=== PATIENT | female | born 1985 | race Caucasian/White ===

== ENCOUNTER 2019-02-05 05:35 | Inpatient (IN) ==
--- NOTE | 2019-01-27 08:26 | PAT Medication Instructions ---
Medication Instructions Date of Service January 27, 2019 Home Medications PNV cmb#95-ferrous fumarate-FA [] 1 tab PO QAM acetaminophen [Tylenol Extra Strength] 500 mg PO Q6H NEEDED DO NOT take the morning of surgery PNV cmb#95-ferrous fumarate-FA [] 1 tab PO QAM Take morning of surgery With a small sip of water, OTHERWISE NOTHING TO EAT OR DRINK AFTER MIDNIGHT: acetaminophen [Tylenol Extra Strength] 500 mg PO Q6H NEEDED (if needed; stop 4 hours before surgery) Take evening before surgery acetaminophen [Tylenol Extra Strength] 500 mg PO Q6H NEEDED (if needed) Other Notes If you have any questions please call us at [phone] or [phone] or [phone] or [phone]
--- NOTE | 2019-01-27 08:37 | Anesthesiology Consultation ---
Date of Service January 27, 2019 Assessment & Plan (1) Encounter for pre-operative examination: - No previous anesthesia records Chart Review Chart Review: Acceptable Risk for Surgery and Patient seen in Pre Admission Testing Consults Requested none Teaching & Discussion Pre-Anesthesia Teaching/Discussion Notes: Instructed NPO after midnight before surgery, except medications with 15 cc of water. Medication instructions provided according to the PAT guidelines. History Surgery Operation Date: 02/05/19 07:30 Proposed Procedures p Section in LD - Jose Luis Meek MD Height/Weight Height: 5 ft 6 in Weight: 107.7 kg Allergies Allergy/AdvReac Type Severity Reaction Status Date / Time No Known Allergies Allergy Verified 01/23/19 08:04 Medications Home Medications Medication Instructions Recorded Confirmed Last Taken PNV cmb#95-ferrous fumarate-FA 1 tab PO QAM 01/23/19 01/23/19 Unknown [] acetaminophen [Tylenol Extra 500 mg PO Q6H PRN 01/23/19 01/23/19 Unknown Strength] Past Medical History Medical History Bronchitis X 2 DURING THIS -LAST TIME 2 MONTHS AGO PER PT-NO INHALERS Epilepsy Follows with [facility]. No longer on medication. Grand Mal seizures. Last one was 3-4 years ago. Began in 7th grade. Exercise / Class Metabolic Activity II 4-5 Yardwork/Stairs/Walk up hill (Walking daily and chasing after her toddler. Able to climb stairs. Denies CP with activity and normally no SOB with activity, but slight ALMARAZ as end of approaches. ) Past Family History Family History Grandmother (Maternal) Family history of diabetes mellitus Mother Family history of diabetes mellitus Past Surgical History Surgical History History of section 2017 History of tooth extraction WISDOM TEETH Past Anesthesia History No Hx of Anesthesia Complications and No Family Hx of Anesthesia Complications History of PONV No Hx of PONV and Hx of Motion Sickness (If riding in the back seat) Social History Smoking Status: Former smoker Do You Dip or Chew Tobacco: No Smoking End Date: QUIT 3 YRS AGO Hx Alcohol Use: Yes Alcohol type: wine Alcohol Intake Frequency Comment: SELDOM WHEN NOT Hx Substance Use: No substance use type: does not use Review of Systems Patient denies chest pain, shortness of breath, joint pain, cough, wheezing, palpitations. +ALMARAZ (Slight with end of ) +Acid Reflux (During only - takes TUMS) Physical Exam Vital Signs BP: 106/72 P: 91 R: 16 T: 98.1 SPO2: 97% on RA ENMT Thyromental Distance: > or= 3.5 Finger Breadths (4) Mallampati Class: II Neck normal visual inspection and trachea midline; neck extension not limited Respiratory normal respiratory effort Auscultation: lungs clear to auscultation bilaterally Cardiovascular Rate/Rhythm: regular rate and regular rhythm Heart Sounds: no murmur Vessels: no carotid bruit Neurologic moves all extremities Psychiatric Orientation: alert and oriented x 3 Testing Laboratory Results 01/27/19 08:50 01/27/19 08:50 PT 9.8 Seconds (9.0-12.0) 01/27/19 08:50 INR 1.0 (0.9-1.1) 01/27/19 08:50 APTT 26.4 Seconds (21.0-31.0) 01/27/19 08:50 Blood Type O Positive 01/27/19 08:50 Antibody Screen NEGATIVE 01/27/19 08:50
[2019-01-27 11:18] LABS: Basophils # (auto) 0.03 K/uL (0-0.2); Basophils % (auto) 0.2 %; Eosinophils % (auto) 0.6 %; Hematocrit (blood only) 32.3 % (37-47); Hemoglobin 10.7 g/dL (12.0-16.0); Immature Granulocytes # (auto) 0.65 K/uL (0.00-0.02); Lymphocytes # (auto) 2.56 K/uL (1.2-3.4); Lymphocytes % (auto) 15.9 %; Mean Corpuscular Hgb Conc 33.1 g/dL (32-36); Mean Corpuscular Volume 81.4 fL (80-100); Mean Platelet Volume 8.9 fL (7.4-10.4); Monocytes # (auto) 1.03 K/uL (0.11-0.59); Monocytes % (auto) 6.4 %; Neutrophils # (auto) 11.75 K/uL (1.4-6.5); Neutrophils % (auto) 72.9 %; Platelet Count 273 K/uL (130-400); RDW Coefficient of Variation 14.7 % (11.5-14.5); RDW Standard Deviation 43.3 fL (36.4-46.3); Red Blood Count 3.97 M/uL (4.2-5.4); White Blood Count 16.12 K/uL (4.8-10.8)
[2019-01-27 11:28] LABS: Partial Thromboplastin Time 26.4 Seconds (21.0-31.0); Prothrombin Time 9.8 Seconds (9.0-12.0)
[2019-01-27 12:36] LABS: BUN Creatinine Ratio 23.5 (10-20); Calcium 8.9 mg/dl (8.5-10.1); Creatinine Clr Calc Pharmacy 156.7 ml/min; Est GFR (African American) 136.8; Est GFR (Non-African American) 118.1; Potassium 4.3 mmol/L (3.5-5.1)
--- NOTE | 2019-02-03 11:10 | History and Physical Report ---
DATE OF ADMISSION: 02/05/2019 CHIEF COMPLAINT: Previous section, intrauterine , 39 weeks gestation, macrosomia. HISTORY OF PRESENT ILLNESS: The patient is a 33-year-old 2, para 1, general health is good, well dated with a first trimester ultrasound, due date 02/12/2019. She has had no problems. Her obstetrical history is as follows: In 2017, she had a boy, 9 pounds 10 ounces, at 40 weeks and 2 days, spontaneous labor, went to full dilatation, pushed for an hour and a half, could not bring the head down, was diagnosed with cephalopelvic disproportion, underwent a primary section. This has been uneventful. Estimated weight is 9+ pounds. The patient has elected for repeat section. PAST MEDICAL HISTORY: She has a boy in good health. ALLERGIES: No known drug allergies. PAST SURGICAL HISTORY: She has had a previous , had wisdom teeth removed. MEDICAL HISTORY: She has a history of a seizure disorder. She has not been on medications for 6 years and her last seizure was 4 years ago. SOCIAL HISTORY: No smoking, no alcohol intake. She works for [employer] in [place]. FAMILY HISTORY: Mom 56, has diabetes. Father is 56 in good health. Father has a history of seizure disorder. One brother has a history of seizure disorders. REVIEW OF SYSTEMS: She does have a history of migraines, history of a seizure disorder which is in her father and her brother and has not been on medications for 6 years. The seizures have been getting more infrequent. PHYSICAL EXAMINATION: GENERAL: Well-developed, well-nourished 33-year-old white female, alert, oriented x3 and cooperative, in no acute distress, appeared her stated age. EYES: Conjunctivae are pink. Sclerae white, no evidence of jaundice. EARS: Had normal light reflex bilaterally. NOSE: Had normal mucosa. Septum is midline. There were no polyps. THROAT: No erythema or evidence of infection. Teeth are in good state of repair. HEAD: Normocephalic, normal distribution of hair. NECK: Supple. Trachea midline. Thyroid is not enlarged. There is no adenopathy appreciated. Both carotids are of good intensity. CHEST: Clear to auscultation and percussion. No wheezes, rales or rhonchi appreciated. HEART: Had regular rhythm. S1, S2 are normal. BREASTS: Normal. ABDOMEN: Revealed a term size abdomen, well-healed Pfannenstiel scar. Estimated weight over 9 pounds, vertex presentation. MUSCULOSKELETAL: Revealed no calf tenderness. PELVIC: Revealed cervix to be posterior, 90% effaced, 2 cm dilated. IMPRESSIONS OF THIS CASE: Macrosomia, previous section, history of seizure disorder.
[2019-02-05] MEDS ORDERED: LACTATED RINGER'S 1,000 ML IV SCH ×3 (06:00→09:00)
[2019-02-05] MEDS ORDERED: cefOXitin 2,000 MG in DEXTROSE 5% 50 ML IV SCH (06:00)
[2019-02-05] MEDS ORDERED: CITRIC ACID/SODIUM CITRATE 15 ML UDC PO SCH (06:00)
[2019-02-05 06:26] LABS: Basophils # (auto) 0.04 K/uL (0-0.2); Basophils % (auto) 0.2 %; Eosinophils # (auto) 0.15 K/uL (0-0.5); Eosinophils % (auto) 0.9 %; Hematocrit (blood only) 32.9 % (37-47); Immature Granulocytes # (auto) 0.52 K/uL (0.00-0.02); Immature Granulocytes % (auto) 3.2 %; Lymphocytes # (auto) 3.44 K/uL (1.2-3.4); Lymphocytes % (auto) 21.1 %; Mean Corpuscular Volume 80.2 fL (80-100); Mean Platelet Volume 8.8 fL (7.4-10.4); Monocytes # (auto) 0.93 K/uL (0.11-0.59); Monocytes % (auto) 5.7 %; Neutrophils # (auto) 11.25 K/uL (1.4-6.5); Neutrophils % (auto) 68.9 %; Platelet Count 260 K/uL (130-400); RDW Coefficient of Variation 14.7 % (11.5-14.5); RDW Standard Deviation 43.1 fL (36.4-46.3); White Blood Count 16.33 K/uL (4.8-10.8)
[2019-02-05 06:34] LABS: Mean Corpuscular Hgb Conc 33.4 g/dL (32-36)
[2019-02-05 06:41] LABS: Partial Thromboplastin Time 25.8 Seconds (21.0-31.0); Prothrombin Time 9.9 Seconds (9.0-12.0)
[2019-02-05 07:06] LABS: BUN Creatinine Ratio 21.5 (10-20); Calcium 8.8 mg/dl (8.5-10.1); Creatinine Clr Calc Pharmacy 145.5 ml/min; Est GFR (African American) 133.5; Est GFR (Non-African American) 115.2; Potassium 3.9 mmol/L (3.5-5.1)
--- NOTE | 2019-02-05 07:17 | History & Physical Bridge Note ---
Date of Service February 05, 2019 History & Physical Bridge Note I have examined the patient, reviewed the History & Physical and in the interval since the performance of the History & Physical I have noted the following changes of clinical significance: no changes noted
[2019-02-05] MEDS ORDERED: MoRPHine SULFATE PF 1 MG/ML 10 ML AMP/VIAL ONE (07:39)
[2019-02-05] MEDS ORDERED: fentaNYL citrate 100 MCG/2 ML VIAL ONE (07:40)
[2019-02-05] MEDS ORDERED: OXYTOCIN 10 UNITS/ML VIAL ONE ×3 (07:53→08:13)
[2019-02-05] MEDS ORDERED: PHENYLEPHRINE 100MCG/ML 5ML SYR ONE (07:53)
[2019-02-05] MEDS ORDERED: NALOXONE HCL 0.08 MG in SYRINGE 1.8 ML IV PRN (07:59)
[2019-02-05] MEDS ORDERED: MoRPHine SULFATE PF 1 MG/ML 10 ML AMP/VIAL INT SPINAL ONE (07:59)
[2019-02-05] MEDS ORDERED: NALOXONE HCL 1 MG in SODIUM CHLORIDE 0.9% 1000ML 1,000 ML IV PRN (07:59)
[2019-02-05] MEDS ORDERED: DiphenhydrAMINE HCL 50 MG/ML VIAL IV PRN ×2 (07:59→08:51)
[2019-02-05] MEDS ORDERED: ONDANSETRON INJ 2 MG/ML 2 ML VIAL IV PRN ×2 (07:59→08:51)
[2019-02-05] MEDS ORDERED: HYDROmorphone INJ 0.5 MG/0.5 ML SYR IV PRN (07:59)
[2019-02-05] MEDS ORDERED: ePHEDrine sulfate 50 MG/ML AMP IV PRN (07:59)
[2019-02-05] MEDS ORDERED: NALOXONE HCL 0.4 MG/1 ML VIAL/CARP IV PRN (07:59)
[2019-02-05] MEDS ORDERED: NALBUPHINE HCL INJ 10 MG/ML AMP IV PRN (07:59)
[2019-02-05] MEDS ORDERED: LACTATED RINGER'S 500 ML IV PRN (07:59)
[2019-02-05] MEDS ORDERED: SODIUM CHLORIDE 0.9% 1000ML 1,000 ML IV SCH (08:00)
[2019-02-05] MEDS ORDERED: DC INTRASPINAL MORPHINE SCH (08:00)
[2019-02-05] MEDS ORDERED: NO NARCOTICS OR SEDATIVES SCH (08:00)
[2019-02-05] MEDS ORDERED: ONDANSETRON INJ 2 MG/ML 2 ML VIAL ONE (08:10)
[2019-02-05] MEDS ORDERED: OXYTOCIN 10 UNITS/ML VIAL IM ONE (08:26)
[2019-02-05] MEDS ORDERED: SENNA 8.6 MG TAB PO PRN (08:51)
[2019-02-05] MEDS ORDERED: HYDROCORTISONE ACETATE 25 MG SUPP PR PRN (08:51)
[2019-02-05] MEDS ORDERED: MAGNESIUM HYDROXIDE SUSP 30 ML UDC PO PRN (08:51)
[2019-02-05] MEDS ORDERED: SUPERCREAM 0.870% 15 GM JAR EXT PRN (08:51)
[2019-02-05] MEDS ORDERED: BENZOCAINE 20% AER SPR 82.5 GM CAN EXT PRN (08:51)
[2019-02-05] MEDS ORDERED: PROMETHAZINE HCL 25 MG in SODIUM CHLORIDE 0.9% 50 ML IV PRN (08:51)
[2019-02-05] MEDS ORDERED: DIPHTHERIA/TETANUS/PERTUSSIS 0.5 ML SYR/VIAL IM ONE (08:51)
--- NOTE | 2019-02-05 08:51 | Post Operative Brief Note ---
Immediate Post Op Note v1 Date of Surgery February 05, 2019 Pre & Post Diagnosis Operation Date: 02/05/19 07:30 Pre-Op Diagnosis: Term , Previous Section Post-Op Diagnosis: Term , Previous Section Low Transverse Section; Delivery of Live Male Child Procedure Operation Date: 02/05/19 07:30 Actual Procedures p Section in LD - Jose Luis Meek MD Surgeon Jose Luis Meek MD Manager Privacy Dr Pratt Estimated Blood Loss 500 Findings Consistent with Post-Op Diagnosis Fluids 1300 ml Specimens placenta Drains Salazar Catheter (salazar inserted after spinal with return of clear yellow urine) Anesthesia Type MAC Spinal Regional Complications none Disposition Accompanied Patient To Recovery: No Disposition: Recovery Room
--- NOTE | 2019-02-05 09:37 | Anesthesiology Progress Note ---
Date of Service February 05, 2019 Anesthesia Post Procedure Vital Signs Vital Signs: Temp Pulse Resp BP Pulse Ox 02/05/19 09:36 79 117/59 L 02/05/19 09:35 82 97 02/05/19 09:30 84 97 02/05/19 09:26 78 116/69 02/05/19 09:25 83 96 02/05/19 09:20 80 97 02/05/19 09:19 75 92 02/05/19 09:18 85 132/71 02/05/19 09:15 80 94 02/05/19 09:10 78 96 02/05/19 09:07 86 94 02/05/19 09:06 127/64 02/05/19 09:05 78 97 02/05/19 09:00 92 H 97 02/05/19 08:56 84 92 02/05/19 08:55 83 125/57 L 95 02/05/19 07:34 87 98 02/05/19 07:29 82 98 02/05/19 06:58 36.7 C 83 16 136/93 02/05/19 06:02 116/60 02/05/19 05:49 36.3 C L 91 H 16 141/63 H Transfer of Care Handoff Completed per policy Notes Mental Status: alert / awake / arousable Patient Amnestic to Procedure: Yes Nausea / Vomiting: adequately controlled Pain: adequately controlled Airway Patency, RR, SpO2: stable & adequate BP & HR: stable & adequate Hydration State: stable & adequate Neuraxial Anesthesia: was administered and sensory block is resolving Anesthetic Complications: no major complications apparent and Pt Satisfied with anesthetic care
--- NOTE | 2019-02-05 10:09 | Operative Report ---
DATE OF OPERATION: 02/05/2019 PROCEDURE: Repeat low segment section. INDICATIONS FOR SURGERY: Previous section for macrosomia. PREOPERATIVE DIAGNOSES: Suspected macrosomia, intrauterine , 39 weeks gestation. POSTOPERATIVE DIAGNOSIS: Delivered live male infant, 9 pounds 2 ounces. SURGEON: Roxie Meek MD. OUTSIDE SALES: Blayne Pratt MD ESTIMATED BLOOD LOSS: 500 mL. ANESTHESIA: Spinal. OPERATIVE FINDINGS AND PROCEDURE: The patient was brought to the OR table, correctly identified by armband and conversation. Spinal anesthesia was administered. Burton catheter was inserted aseptically in the bladder, connected to gravity drainage. Compression stockings were applied. The patient was positioned on the OR table. Lower abdomen was painted with an alcohol-based sterilizing solution, waited 3 minutes for the solution to dry, then draped in usual sterile fashion. Once the anesthesia was tested and found to be adequate, a Pfannenstiel incision was made through a previous scar. Incision was carried down to the anterior fascia by sharp dissection. Hemostasis was secured by electrocauterization. Fascia was incised transversely, from underlying muscle by blunt and sharp dissection. Recti muscles were in the midline exposing the peritoneum which was carefully raised and entered. The lower uterine segment was exposed with a bladder retractor. An incision was made above the vesicouterine fold. Bladder was undermined bluntly and pushed out of the operative field. Lower uterine segment was scored with a knife, then entered with the scissors. At this time, clear amniotic fluid was seen. A vectis retractor was applied to the 's head, then with fundal pressure, 's head was delivered, then the body was delivered. Cord was clamped and cut. The infant was attended to by the time study technologist, Dr. Cartagena who was scrubbed and present at the time of the delivery. Following this, collected some cord blood. Placenta was removed manually. Uterus, tubes, and ovaries were brought out through the incision. Uterine cavity was wiped clean with a clean sponge. The edges of the myometrial defect were grasped with ring forceps. The myometrial layer was approximated with continuous interlocking suture of heavy chromic. Then, the fascial layer was approximated over this with a continuous suture of heavy duty Vicryl and one [id number] suture was used to complete the hemostatic process. Peritoneal edges were restored with a 3-0 chromic and this restored the integrity of the vesicouterine fold. Tubes and ovaries were inspected and found to be normal. The pelvis was cleansed of all blood clots and debris. Uterus, tubes, and ovaries were reinserted into the abdominal cavity. Careful anatomical approximation of the anterior abdominal wall was performed. Peritoneum was closed with a mattress suture of chromic catgut. Recti muscles were approximated with interrupted wheqzj-[id number]-cbcju suture of chromic catgut. The fascia was closed with continuous interlocking suture of Vicryl on each side, tied in the midline. SubQ was approximated with a running plain. The skin edges were approximated with staple clips. I attest to the content of the Intraoperative Record and any orders documented therein. Any exception s are noted below.
[2019-02-05] MEDS ORDERED: OXYTOCIN 30 UNITS in LACTATED RINGER'S 1,000 ML IV SCH (11:15)
[2019-02-05] MEDS: KETOROLAC 30 MG/ML VIAL IV PRN ×3 (11:16→23:13)
[2019-02-05] MEDS: SIMETHICONE 80 MG CHEW PO SCH ×3 (15:55→20:00)
[2019-02-05] MEDS: DOCUSATE SODIUM 100 MG CAP PO SCH (20:00)
[2019-02-06] MEDS ORDERED: ZOLPIDEM TARTRATE 5 MG TAB PO PRN (02:00)
[2019-02-06] MEDS ORDERED: KETOROLAC 30 MG/ML VIAL IV PRN (02:00)
[2019-02-06] MEDS ORDERED: MEPERIDINE HCL 50 MG/ML CARP IV PRN (02:00)
[2019-02-06] MEDS: OXYCODONE/ACETAMINOPHEN 5mg/325mg TAB PO PRN ×5 (04:54→20:58)
[2019-02-06 06:39] LABS: Basophils # (auto) 0.04 K/uL (0-0.2); Basophils % (auto) 0.2 %; Eosinophils # (auto) 0.12 K/uL (0-0.5); Eosinophils % (auto) 0.7 %; Hematocrit (blood only) 28.9 % (37-47); Hemoglobin 9.5 g/dL (12.0-16.0); Immature Granulocytes # (auto) 0.24 K/uL (0.00-0.02); Immature Granulocytes % (auto) 1.5 %; Lymphocytes # (auto) 1.89 K/uL (1.2-3.4); Lymphocytes % (auto) 11.8 %; Mean Corpuscular Hgb Conc 32.9 g/dL (32-36); Mean Corpuscular Volume 81.4 fL (80-100); Mean Platelet Volume 8.7 fL (7.4-10.4); Monocytes # (auto) 1.09 K/uL (0.11-0.59); Monocytes % (auto) 6.8 %; Neutrophils # (auto) 12.68 K/uL (1.4-6.5); Platelet Count 211 K/uL (130-400); RDW Coefficient of Variation 14.9 % (11.5-14.5); RDW Standard Deviation 43.9 fL (36.4-46.3); Red Blood Count 3.55 M/uL (4.2-5.4); White Blood Count 16.06 K/uL (4.8-10.8)
[2019-02-06] MEDS: SIMETHICONE 80 MG CHEW PO SCH ×4 (07:25→20:33)
[2019-02-06] MEDS: DOCUSATE SODIUM 100 MG CAP PO SCH ×2 (07:25→20:33)
[2019-02-06] MEDS: FERROUS SULFATE 325 MG TAB PO SCH (07:25)
[2019-02-06] MEDS: PRENATAL VITAMIN 1 TAB PO SCH (07:25)
[2019-02-06] MEDS: IBUPROFEN 600 MG TAB PO PRN ×4 (09:06→20:59)
--- NOTE | 2019-02-06 12:21 | Obstetrical Progress Note ---
Date of Service February 06, 2019 Physical Exam Physical Exam: abdomen soft and non tender incision is clean and dry passing flatus vaginal bleeding scant to moderate hgb 9.5 no calf tenderness ambulating well Results & Data Vital Signs (Past 12 Hours) Vital Signs Temp Pulse Resp BP Pulse Ox 02/06/19 07:35 36.8 C 93 H 16 117/77 96 02/06/19 05:05 36.7 C 98 H 16 102/67 97 02/06/19 01:41 16 97 02/06/19 00:30 17 99
[2019-02-06] MEDS ORDERED: BISACODYL 5 MG TABEC PO SCH (20:00)
[2019-02-07] MEDS: OXYCODONE/ACETAMINOPHEN 5mg/325mg TAB PO PRN ×4 (02:22→15:24)
[2019-02-07] MEDS: IBUPROFEN 600 MG TAB PO PRN ×4 (02:22→15:23)
[2019-02-07 06:49] LABS: Hemoglobin 9.4 g/dL (12.0-16.0)
[2019-02-07] MEDS: DOCUSATE SODIUM 100 MG CAP PO SCH (07:41)
[2019-02-07] MEDS: FERROUS SULFATE 325 MG TAB PO SCH (07:41)
[2019-02-07] MEDS: PRENATAL VITAMIN 1 TAB PO SCH (07:41)
[2019-02-07] MEDS: SIMETHICONE 80 MG CHEW PO SCH (07:42)
--- NOTE | 2019-02-07 08:24 | Anesthesiology Progress Note ---
Date of Service February 07, 2019 Anesthesia Post Procedure Vital Signs Vital Signs: Temp Pulse Resp BP Pulse Ox 02/06/19 22:40 36.6 C 88 16 115/82 97 02/06/19 19:25 36.4 C L 86 16 108/70 96 02/06/19 16:10 36.6 C 90 18 104/66 97 Pain Intensity Bilateral Lower Abdomen: Pain Intensity: 3 Transfer of Care Handoff Completed per policy Notes Mental Status: alert / awake / arousable Patient Amnestic to Procedure: Yes Nausea / Vomiting: adequately controlled Pain: adequately controlled Airway Patency, RR, SpO2: stable & adequate BP & HR: stable & adequate Hydration State: stable & adequate Neuraxial Anesthesia: was administered and sensory block resolved Anesthetic Complications: no major complications apparent and Pt Satisfied with anesthetic care
[2019-02-07] MEDS ORDERED: BISACODYL 10 MG SUPP PR PRN (08:51)
--- NOTE | 2019-02-07 10:43 | Obstetrical Progress Note ---
Date of Service February 07, 2019 Physical Exam Physical Exam: abdomen soft and non tender no calf tenderness vaginal bleeding scant ambulating well hgb 9.4 pain is well controlled with percocet and motrin Results & Data Vital Signs (Past 12 Hours) Vital Signs Temp Pulse Resp BP Pulse Ox 02/07/19 07:45 36.5 C 82 16 125/81 99
--- NOTE | 2019-02-07 14:05 | Discharge Summary ---
Mrs. Lafleur was admitted for a repeat section at 39 weeks gestation. Her first was done secondary to cephalopelvic disproportion due to a macrosomic which weighed 9 pounds 10 ounces. The patient was not interested in attempting . Estimated weight at the time of admission was also 8-9 pounds. The day of admission she received prophylactic antibiotics, spinal anesthesia, we did a repeat low segment section without difficulty. Estimated blood loss of about 500 mL. Postoperatively, she did well. Bowel sounds returned within 24 hours. She remained afebrile throughout her postoperative course. Her incision continued to remain clean and dry. At the time of discharge, her hemoglobin was 9.4. She was ambulating well, eating well and pain was well controlled on a combination of Motrin 600 mg and Percocet 5/325. She was discharged to be followed in home and office with the usual instructions and told to return for removal of lali.
== END 2019-02-07 16:28 | disposition home or self-care (01) | DRG 787 ==
LOC: 4S1 05:35 → EDSTATUS 07:30 → 4S2 12:06